=== PATIENT | female | born 1985 | race Two or more races ===

== ENCOUNTER 2018-08-04 09:20 | Emergency (ER) | payer OTHER ==
[2018-08-04] MEDS ORDERED: NORMAL SALINE 1000 ML 1,000 ML IV ONE (09:41)
--- NOTE | 2018-08-04 09:42 | ER Document Report ---
ED Medical Screen (RME) - General TRAVEL OUTSIDE OF THE [place] IN LAST 30 DAYS: No <YOLI CONNOR - Last Filed: 08/04/18 09:42> <NEWTON YUNG - Last Filed: 08/04/18 12:04> - General Chief Complaint: OB Problem (<20wks) Stated Complaint: VAGINAL SPOTTING Time Seen by Provider: 08/04/18 09:40 Notes: 33 years old female who is , 17 weeks presents today with vaginal spotting since yesterday. Nauseous unable to keep things down. Malaise. No fever chills. (YOLI CONNOR) - Related Data Allergies/Adverse Reactions: ibuprofen Allergy (Verified 08/04/18 09:21) Past Medical History - General Last Menstrual Period: 05/10/18 - Social History Chew tobacco use (# tins/day): No Frequency of alcohol use: None Drug Abuse: None Renal/ Medical History: Denies: Hx Peritoneal Dialysis <YOLI CONNOR - Last Filed: 08/04/18 09:42> - Vital signs Vitals: Temp Pulse Resp BP Pulse Ox 98.5 F 78 16 120/60 100 08/04/18 09:24 08/04/18 09:24 08/04/18 09:24 08/04/18 09:24 08/04/18 09:24 Course - Laboratory Result Diagrams: 08/04/18 10:16 <NEWTON YUNG - Last Filed: 08/04/18 12:04> - Vital Signs Vital signs: Temp Pulse Resp BP Pulse Ox 98.5 F 78 16 120/60 100 08/04/18 09:24 08/04/18 09:24 08/04/18 09:24 08/04/18 09:24 08/04/18 09:24 - Laboratory Laboratory results interpreted by me: 08/04/18 08/04/18 10:16 10:16 WBC 3.2 L Beta HCG, Quant 54123.00 H Doctor's Discharge <YOLI CONNOR - Last Filed: 08/04/18 09:42> <NEWTON YUNG - Last Filed: 08/04/18 12:04> - Discharge Clinical Impression: Vaginal bleeding during Condition: Stable Disposition: HOME, SELF-CARE Instructions: Bleeding During Early ([facility]) Prescriptions: Promethazine HCl [Phenergan 25 mg Tablet] 1 tab PO Q8H PRN #15 tablet PRN Reason: nausea/vomiting Referrals: [facility] [Provider Group] - Follow up in 3-5 days
[2018-08-04 10:22] LABS: APPEARANCE,URINE SLIGHTLY-CLOUDY; BILIRUBIN,URINE NEGATIVE (NEGATIVE); COLOR,URINE YELLOW; GLUCOSE, URINE NEGATIVE (NEGATIVE); KETONES,URINE NEGATIVE (NEGATIVE); LEUKOCYTE ESTERASE,URINE NEGATIVE (NEGATIVE); NITRITE,URINE NEGATIVE (NEGATIVE); PROTEIN,URINE NEGATIVE (NEGATIVE); URINE SPECIFIC GRAVITY 1.025; UROBILINOGEN,URINE NEGATIVE mg/dL (<2.0)
[2018-08-04 10:29] LABS: ABSOLUTE EOSINOPHILS # (AUTO) 0.1 10^3/uL (0.0-0.6); ABSOLUTE LYMPHOCYTES (AUTO) 1.1 10^3/uL (0.5-4.7); ABSOLUTE MONOCYTES (AUTO) 0.3 10^3/uL (0.1-1.4); ABSOLUTE NEUT (AUTO) 1.7 10^3/uL (1.7-8.2); EOSINOPHILS % (AUTO) 1.7 % (0-6); HEMATOCRIT 36.8 % (36.0-47.0); HEMOGLOBIN 12.9 g/dL (12.0-15.5); LYMPHOCYTES % (AUTO) 35.5 % (13-45); MEAN CORPUSCULAR HEMOGLOBIN 30.9 pg (27.0-33.4); MEAN CORPUSCULAR VOLUME 88 fl (80-97); PLATELET COUNT 244 10^3/uL (150-450); RED BLOOD COUNT 4.18 10^6/uL (3.72-5.28); RED CELL DISTRIBUTION WIDTH 13.3 % (11.5-14.0); SEGMENTED NEUTROPHILS % (AUTO) 51.8 % (42-78); TOTAL CELLS COUNTED % (AUTO) 100 %; WHITE BLOOD COUNT 3.2 10^3/uL (4.0-10.5)
--- NOTE | 2018-08-04 10:58 | RADIOLOGY REPORT (SQ) ---
EXAM DESCRIPTION: U/S 1TRIMESTER/1GEST W/DOPPLER COMPLETED DATE/TIME: 08/04/2018 10:13 am REASON FOR STUDY: Bleeding from vagina COMPARISON: None. EXAM PARAMETERS: TECHNIQUE: Transvaginal Static and real-time grayscale images acquired of the pelv is. Additional selected spectral and color Doppler images recorded. All images stored on PACS. LABORATORY: bHCG: Not available LIMITATIONS: None. FINDINGS: FETUS: Living intra-uterine fetus. EGA: 11 Weeks 0 Days RANDA: 02/04/2019 FHR: 173 beats per minute. PLACENTA: Not visualized. SUBCHORIONIC BLEED: No. SIZE OF BLEED: Not applicable. UTERUS: No masses. No anomalies. CERVICAL LENGTH: 3.6 cm. Closed. RIGHT ADNEXA: Right ovary was not visualized. No adnexal free fluid. No adnexal masses. LEFT ADNEXA: Left ovary was not visualized. No adnexal free fluid. No adnexal masses. FREE FLUID: None. OTHER: No other significant finding. IMPRESSION: LIVING INTRAUTERINE . EGA 11 WEEKS 0 DAYS Trimester of : First - 0 to 13 weeks. TECHNICAL DOCUMENTATION: JOB ID: [id number] [employer]- All Rights Reserved Reading location - IP/workstation name: [email or web address]
--- NOTE | 2018-08-04 12:04 | ER Document Report ---
ED General - General Chief Complaint: OB Problem (<20wks) Stated Complaint: VAGINAL SPOTTING Time Seen by Provider: 08/04/18 09:40 Notes: Patient is a 33-year-old female, approximately 11 weeks gravid that presents to the emergency department for chief complaint of vaginal spotting. Patient states she noticed a small amount of spotting yesterday morning and this morning, she has had associated nausea and some vomiting, that comes and goes throughout the day, she is been having this throughout her . She had mild lower abdominal cramping, but is not complaining of any significant pain at this time, describes her pain as a 1 out of 10. She denies having any vaginal discharge, dysuria, hematuria or urinary frequency, denies any fevers, chills, night sweats, chest pain or shortness of breath. She is otherwise been doing well with this . Past Medical History: Denies chronic medical conditions Past Surgical History: Rotator cuff surgery Social History: Denies tobacco, alcohol or drug use Family History: Reviewed and noncontributory for presenting illness Allergies: Reviewed, see documented allergy list. REVIEW OF SYSTEMS: Other than noted above, the 12 point review of systems was reviewed with the patient and were negative, all pertinent findings are included in the HPI. PHYSICAL EXAMINATION: Vital signs reviewed, nursing noted reviewed. GENERAL: Well-appearing, well-nourished and in no acute distress. HEAD: Atraumatic, normocephalic. EYES: Eyes appear normal, extraocular movements intact, sclera anicteric, conjunctiva are normal. ENT: nares patent, oropharynx clear without exudates. Moist mucous membranes. NECK: Normal range of motion, supple without lymphadenopathy LUNGS: Breath sounds clear to auscultation bilaterally and equal. No wheezes rales or rhonchi. HEART: Regular rate and rhythm without murmurs ABDOMEN: Soft, gravid, nontender, normoactive bowel sounds. No rebound, guarding, or rigidity. No masses appreciated. EXTREMITIES: Nontender, good range of motion, no pitting or edema. NEUROLOGICAL: No focal neurological deficits. Moves all extremities spontaneously Motor and sensory grossly intact on exam. PSYCH: Normal mood, normal affect. SKIN: Warm, Dry, normal turgor, no rashes or lesions noted on exposed skin TRAVEL OUTSIDE OF THE [place] IN LAST 30 DAYS: No - Related Data Allergies/Adverse Reactions: ibuprofen Allergy (Verified 08/04/18 09:21) Home Medications: vitamins daily Past Medical History - General Last Menstrual Period: 05/10/18 - Social History Smoking Status: Never Smoker Chew tobacco use (# tins/day): No Frequency of alcohol use: None Drug Abuse: None Family History: Reviewed & Not Pertinent Patient has suicidal ideation: No Patient has homicidal ideation: No Renal/ Medical History: Denies: Hx Peritoneal Dialysis Physical Exam - Vital signs Vitals: Temp Pulse Resp BP Pulse Ox 98.5 F 78 16 120/60 100 08/04/18 09:24 08/04/18 09:24 08/04/18 09:24 08/04/18 09:24 08/04/18 09:24 Course - Re-evaluation Re-evalutation: Patient seen and examined vital signs reviewed. Laboratory data and imaging were ordered as appropriate for the patient's presenting symptoms and complaint, with consideration of any critical or life threatening conditions that may be associated with their obtained history and exam as noted above. Results were reviewed when available and demonstrated normal OB ultrasound, single live intrauterine , cervical loss is closed, UA unremarkable, CBC negative, hCG consistent with current stage of The patient was re-evaluated and was stable Evaluation was most consistent with vaginal bleeding in early Results were discussed with the patient at this point, after careful consideration I feel that that patient can be discharged from the emergency department, the patient was educated treatments and reasons to return to the emergency department based on their presumed diagnosis as noted above, they were advised to followup with a primary care physician in 2-3 days. Patient was agreeable to plan of care. *Note is created using voice recognition software and may contain spelling, syntax or grammatical errors. Laboratory 08/04/18 08/04/18 08/04/18 09:50 10:16 10:16 WBC 3.2 L RBC 4.18 Hgb 12.9 Hct 36.8 MCV 88 MCH 30.9 MCHC 35.0 RDW 13.3 Plt Count 244 Seg Neutrophils % 51.8 Lymphocytes % 35.5 Monocytes % 10.0 Eosinophils % 1.7 Basophils % 1.0 Absolute Neutrophils 1.7 Absolute Lymphocytes 1.1 Absolute Monocytes 0.3 Absolute Eosinophils 0.1 Absolute Basophils 0.0 Beta HCG, Quant 01063.00 H Total Beta HCG POSITIVE Urine Color YELLOW Urine Appearance SLIGHTLY-CLOUDY Urine pH 7.0 Ur Specific [place] 1.025 Urine Protein NEGATIVE Urine Glucose (UA) NEGATIVE Urine Ketones NEGATIVE Urine Blood NEGATIVE Urine Nitrite NEGATIVE Urine Bilirubin NEGATIVE Urine Urobilinogen NEGATIVE Ur Leukocyte Esterase NEGATIVE Urine WBC (Auto) 2 Urine RBC (Auto) 1 Urine Bacteria (Auto) TRACE Squamous Epi Cells Auto 5 Urine Mucus (Auto) MANY Urine Ascorbic Acid NEGATIVE Obstetrics Ultrasound 08/04/18 09:41 IMPRESSION: LIVING INTRAUTERINE . EGA 11 WEEKS 0 DAYS Trimester of : First - 0 to 13 weeks. - Vital Signs Vital signs: Temp Pulse Resp BP Pulse Ox 98.5 F 71 18 131/67 H 99 08/04/18 09:24 08/04/18 12:15 08/04/18 12:15 08/04/18 12:15 08/04/18 12:15 - Laboratory Result Diagrams: 08/04/18 10:16 Laboratory results interpreted by me: 08/04/18 08/04/18 10:16 10:16 WBC 3.2 L Beta HCG, Quant 95473.00 H Discharge - Discharge Clinical Impression: Vaginal bleeding during Condition: Stable Disposition: HOME, SELF-CARE Instructions: Bleeding During Early ([facility]) Prescriptions: Promethazine HCl [Phenergan 25 mg Tablet] 1 tab PO Q8H PRN #15 tablet PRN Reason: nausea/vomiting Referrals: [facility] [Provider Group] - Follow up in 3-5 days
[2018-08-04 12:16] VITALS: BP 131/67
== END 2018-08-04 12:16 | disposition home or self-care (01) ==
LOC: ER 09:20
DX: O20.9 Hemorrhage in early pregnancy, unspecified (principal); Z3A.11 11 weeks gestation of pregnancy
CPT/HCPCS: 99284; 96360; 36415; 84702; 85025; 81001; 76801; 93976; J7030